=== PATIENT | female | born 1960 | race Caucasian/White ===

== ENCOUNTER 2016-09-14 15:57 | Inpatient (IN) | payer OTHER ==
[~2016-09-14] VITALS: Ht 157.5 cm; Wt 68.6 kg
[2016-09-14] MEDS ORDERED: MAG HYDROX 30 ML UDC PO PRN (20:35)
[2016-09-14] MEDS ORDERED: HALOPERIDOL 5 MG/ML VIAL IM PRN (20:35)
[2016-09-14] MEDS ORDERED: DIPHENHYDRAMINE 50 MG/ML VIAL IM PRN (20:35)
[2016-09-14] MEDS ORDERED: HALOPERIDOL 5 MG TAB PO PRN (20:35)
[2016-09-14] MEDS ORDERED: LORAZEPAM 2 MG/ML VIAL IM PRN (20:35)
[2016-09-14] MEDS ORDERED: ALU/MAG/SIM 30 ML UDC PO PRN (20:35)
[2016-09-14] MEDS ORDERED: DIPHENHYDRAMINE 50 MG CAP PO PRN (20:35)
[2016-09-14] MEDS ORDERED: TRAZODONE 50 MG TAB PO PRN (20:35)
[2016-09-14] MEDS ORDERED: LORAZEPAM 2 MG TAB PO PRN (20:35)
[2016-09-14 20:37] VITALS: BP_SYST 105; RESP 16; TEMP 97.7
[2016-09-14 20:38] VITALS: Ht 157.5 cm; Wt 68.6 kg
[2016-09-14] MEDS ORDERED: *PINK BRACELET XX ONE (22:25)
[2016-09-15 08:38] VITALS: BP_SYST 154; RESP 16; TEMP 98.5
[2016-09-15] MEDS: NICOTINE 21 MG/24 HR TRANSDERM SCH (08:38)
[2016-09-15] MEDS: MULTIVITS/MINERALS (THERAGRAN M) TAB PO SCH (08:38)
[2016-09-15] MEDS ORDERED: TOPIRAMATE 100 MG TAB PO ONE (10:55)
[2016-09-15] MEDS: ARIPiprazole 5 MG TABLET PO SCH (12:00)
[2016-09-15] MEDS: PAROXETINE HCL 10 MG TAB PO SCH (12:00)
[2016-09-15] MEDS: ACETAMINOPHEN 325 MG TAB PO PRN (14:20)
[2016-09-15] MEDS: *HOME MEDS KEPT IN PHARMACY XX SCH ×2 (19:19→19:21)
[2016-09-15 19:34] VITALS: BP_SYST 115; RESP 20; TEMP 98.4
[2016-09-15] MEDS: TOPIRAMATE 100 MG TAB PO SCH (20:34)
[2016-09-16] MEDS: *HOME MEDS KEPT IN PHARMACY XX SCH ×2 (07:26→20:00)
[2016-09-16] MEDS: ACETAMINOPHEN 325 MG TAB PO PRN (07:49)
[2016-09-16] MEDS: MULTIVITS/MINERALS (THERAGRAN M) TAB PO SCH (08:05)
[2016-09-16] MEDS: NICOTINE 21 MG/24 HR TRANSDERM SCH (08:05)
[2016-09-16] MEDS: PAROXETINE HCL 10 MG TAB PO SCH (08:05)
[2016-09-16] MEDS: ARIPiprazole 5 MG TABLET PO SCH (08:05)
[2016-09-16 09:00] VITALS: BP_SYST 132; RESP 18; TEMP 98
[2016-09-16] MEDS ORDERED: MULTIVITS/MINERALS (THERAGRAN M) TAB PO SCH (09:00)
[2016-09-16] MEDS: GABAPENTIN 300 MG CAP PO SCH ×3 (10:11→20:57)
[2016-09-16 19:00] VITALS: BP_SYST 123; RESP 18; TEMP 99
[2016-09-16] MEDS: TOPIRAMATE 100 MG TAB PO SCH (20:57)
[2016-09-17 08:00] VITALS: BP_SYST 118; RESP 20; TEMP 98.7
[2016-09-17] MEDS: *HOME MEDS KEPT IN PHARMACY XX SCH ×2 (08:00→20:00)
[2016-09-17] MEDS: ARIPiprazole 5 MG TABLET PO SCH (09:10)
[2016-09-17] MEDS: PAROXETINE HCL 10 MG TAB PO SCH (09:11)
[2016-09-17] MEDS: MULTIVITS/MINERALS (THERAGRAN M) TAB PO SCH (09:11)
[2016-09-17] MEDS: GABAPENTIN 300 MG CAP PO SCH ×3 (09:11→20:40)
[2016-09-17] MEDS: NICOTINE 21 MG/24 HR TRANSDERM SCH (09:14)
[2016-09-17] MEDS: ACETAMINOPHEN 325 MG TAB PO PRN ×2 (11:18→18:19)
[2016-09-17 19:00] VITALS: BP_SYST 106; RESP 16; TEMP 98.2
[2016-09-17] MEDS: TOPIRAMATE 100 MG TAB PO SCH (20:40)
[2016-09-18] MEDS: GABAPENTIN 300 MG CAP PO SCH (08:50)
[2016-09-18] MEDS: MULTIVITS/MINERALS (THERAGRAN M) TAB PO SCH (08:50)
[2016-09-18] MEDS: ARIPiprazole 5 MG TABLET PO SCH (08:50)
[2016-09-18] MEDS: PAROXETINE HCL 10 MG TAB PO SCH (08:50)
[2016-09-18 09:09] VITALS: BP_SYST 120; RESP 16; TEMP 98.8
[2016-09-18] MEDS: *HOME MEDS KEPT IN PHARMACY XX SCH (10:00)
[2016-09-18] MEDS: NICOTINE 21 MG/24 HR TRANSDERM SCH (10:10)
[2016-09-18 11:34] VITALS: BP_SYST 120; RESP 16; TEMP 98.8
[2016-09-18 11:38] VITALS: BP_SYST 120; RESP 16; TEMP 98.8
== END 2016-09-18 13:51 | disposition home or self-care (01) | DRG 897 ==
LOC: ENRESERV → ENRESERVTM → ENRESERVDT → ER 15:57 → EMR 19:04 → PSY 20:13
PROVIDERS: ADMIT Psychiatry & Neurology Psychiatry; ATTEND Psychiatry & Neurology Psychiatry
CPT/HCPCS: 36415; 80053; 81001; 84439; 84443; 85025; 85610; 87088; 93005